=== PATIENT | male | born 1980 | race Asian ===

== ENCOUNTER 2021-10-13 07:50 | Day surgery (SDC) | payer OTHER, SELFPAY ==
[~2021-10-13] VITALS: Ht 165.1 cm; Wt 77.1 kg
[2021-10-13] MEDS ORDERED: diphenhydrAMINE 50 MG/ML VIAL ONE (09:25)
[2021-10-13] MEDS ORDERED: fentaNYL citrate 0.05 MG/ML VIAL ONE (09:26)
[2021-10-13] MEDS ORDERED: MIDAZOLAM 5 MG/5 ML VIAL ONE (09:26)
[2021-10-13] MEDS ORDERED: diphenhydrAMINE 50 MG/ML VIAL IVP ONE (11:50)
[2021-10-13] MEDS ORDERED: MIDAZOLAM 2 MG/2 ML VIAL IVP ONE (11:50)
[2021-10-13] MEDS ORDERED: fentaNYL citrate 0.05 MG/ML VIAL IVP ONE (11:50)
== END 2021-10-13 10:25 | disposition home or self-care (01) ==
LOC: MMU 07:50 → MDS 07:50
PROVIDERS: ATTEND Internal Medicine Gastroenterology
DX: K30 Functional dyspepsia (principal); K29.70 Gastritis, unspecified, without bleeding; K21.9 Gastro-esophageal reflux disease without esophagitis; Z79.899 Other long term (current) drug therapy; Z20.822 Contact with and (suspected) exposure to COVID-19
CPT/HCPCS: 43239; 87426; J1200; J2250; J3010